=== PATIENT | male | born 1955 | race Caucasian/White ===

== ENCOUNTER 2023-12-07 20:27 | Emergency (ER) | payer MEDICARE, SELFPAY ==
[2023-12-07 21:09] VITALS: BP 150/102; PULSE 91; RESP 16; TEMP 36.7; O2SAT 95; BMI 28.6
--- NOTE | 2023-12-08 00:24 | ED.GENADULT ---
HPI - General Adult General Chief complaint: General Medical Stated complaint: ? sinus infection Time Seen by Provider: 12/08/23 00:24 History of Present Illness HPI narrative: The patient is a 67-year-old male who has noticed some swelling to the skin of his left cheek and the left side of his nose about 2 days ago. He feels it is getting more swollen and more uncomfortable. He also has had some mild nasal discharge. No definite fever. Mild headache. Patient has a history of coronary disease and has a stent. This was placed many years ago. His primary care doctor is Dr. Lg Velarde of [place], [place]. Related Data Previous Rx's ?Medication ?Instructions ?Recorded cephalexin 500 mg capsule 500 mg PO QID 10 days #40 caps 12/08/23 sulfamethoxazole 800 1 tab PO BID 10 days #20 tabs 12/08/23 mg-trimethoprim 160 mg tablet (Bactrim DS) Allergies Allergy/AdvReac Type Severity Reaction Status Date / Time demeclocycline AdvReac Intermediate Hives Verified 12/07/23 21:12 [From Declomycin] Review of Systems Review of Systems: Yes all other systems are reviewed and are negative [facility] Social History Social History Advance Directives: No Advance Directives Information Provided: No Physical Exam ED Vital Signs: Vital Signs - 24 hr 12/07/23 21:09 Temperature 98.0 F Pulse Rate 91 Respiratory Rate 16 Blood Pressure 150/102 H Pulse Oximetry 95 Oxygen Delivery Method Room Air BMI result Body Mass Index 28.6 Const Other: The patient is awake, alert, pleasant, cooperative. He does not appear toxic or obviously acutely ill. HENMT Other: The patient has some subtle swelling to the skin of the left side of the nose and left cheek generally. This portion of the face is tender to the touch. Eyes Other: Both eyes have mild conjunctival injection. Pupils are round equal, extraocular movements intact. Neck Other: No cervical adenopathy Resp Effort & Inspection: normal respiratory effort Auscultation: clear to auscultation bilaterally Cardio Rate: regular rate Rhythm: regular rhythm Heart sounds: S1 normal heart sound present and S2 normal heart sound present Skin Other: There is some mild erythema and swelling to the left side of the nose and left cheek. This is very subtle. There is no fluctuance. Neuro Other: The patient is awake and alert with a normal mental status. Grossly neurologically intact. Extrem Other: No peripheral edema Medications Administered Discontinued Medications Generic Name Dose Route Start Last Admin Trade Name Luther PRN Reason Stop Dose Admin Cephalexin HCl 1,000 mg 12/08/23 00:58 12/08/23 01:11 Cephalexin 500 Mg Capsule PO 12/08/23 00:59 1,000 mg ONCE ONE Administration Trimethoprim/Sulfamethoxazole 1 tab 12/08/23 00:57 12/08/23 01:11 Sulfamethox/Trimeth 800/160 Tablet PO 12/08/23 00:58 1 tab ONCE ONE Administration Medical Decision Making Medical Decision Making [facility] Narrative: The patient presents with some mild redness and discomfort to the left side of his face. Clinically the patient seems to have a mild facial cellulitis. He will be started on cephalexin and Bactrim. He should follow up with his PCP or return if worse. Discharge Plan Discharge Clinical Impression: Cellulitis of face Patient Disposition: Home, Self-Care Additional Instructions: You have been started on antibiotics for your facial infection. Please take the cephalexin 4 times a day (approximately every 6 hours). Please take the sulfamethoxazole trimethoprim (also known as Bactrim) 2 times a day, approximately every 12 hours. Drink lot of fluids. Stay in touch with your regular doctor for additional advice as needed. Please get checked in the next several days by your regular doctor. Return to the emergency room if you feel you are getting worse. Prescriptions: New cephalexin 500 mg capsule 500 mg PO QID 10 Days Qty: 40 0RF sulfamethoxazole-trimethoprim [Bactrim DS] 800-160 mg tablet 1 tab PO BID 10 Days Qty: 20 0RF Print Language: [place]
[2023-12-08] MEDS: Sulfamethox/Trimeth 800/160 TABLET 1 TAB PO (01:11)
[2023-12-08] MEDS: cephALEXin 500 MG CAPSULE 1000 MG PO (01:11)
[2023-12-08 01:44] VITALS: BP 138/98; PULSE 89; RESP 16; TEMP 36.7
== END 2023-12-08 01:44 | disposition home or self-care (01) ==
PROVIDERS: Emergency Provider Emergency Medicine
DX: L03.211 Cellulitis of face (principal); R51.9 Headache, unspecified; R09.89 Other specified symptoms and signs involving the circulatory and respiratory systems
CPT/HCPCS: 99282; 99283